=== PATIENT | female | born 1960 | race Caucasian/White ===

== ENCOUNTER 2023-10-25 09:01 | Outpatient (CLI) | payer OTHER, SELFPAY ==
--- NOTE | ~2023-10-25 | US_ITS ---
Abdominal Sonogram: Real-time sonographic imaging of the abdomen was performed. Clinical History: Ascites Findings: The liver appears echogenic, with no evidence of mass lesion or bile duct dilatation. Main portal vein demonstrates normal direction of flow. The spleen is normal in size without evidence of focal lesion. The gallbladder is well distended, and appears normal with no evidence of gallstone or wall thickening. The common bile duct measures 5 mm. The visualized pancreas, aorta, and IVC are un remarkable. The right kidney measures 11.2 cm in length and the left kidney measures 10.0 cm. There is no hydronephrosis or renal calculus. Small amount of abdominal ascites present. Impression: Small amount of abdominal ascites. Diffuse fatty infiltration of liver. Reviewed, dictated and finalized at [facility]. CLERK Impression: Small amount of abdominal ascites. Diffuse fatty infiltration of liver.
== END 2023-10-25 09:02 | disposition home or self-care (01) ==
LOC: CHSIMG 09:05
PROVIDERS: PCP Family Medicine; Visit Provider Family Medicine
DX: R18.8 Other ascites (principal); I50.9 Heart failure, unspecified; K76.0 Fatty (change of) liver, not elsewhere classified
CPT/HCPCS: 76700

== ENCOUNTER 2023-10-27 11:09 | Outpatient (CLI) | payer OTHER, SELFPAY ==
--- NOTE | ~2023-10-27 | XR_ITS ---
Clinical Indication: Heart failure PA and lateral views of the chest: Comparison: None Findings: The lungs are clear, without evidence of focal consolidation or pleural effusion. Cardiome diastinal silhouette is within normal limits. Right shoulder arthroplasty present. Impression: Clear lungs. Reviewed, dictated and finalized at [facility]. NDWATER CONSULTANT Impression: Clear lungs.
[2023-10-27 11:55] LABS: Alanine Aminotransferase 22 U/L (14-59); Albumin Level 3.5 g/dL (3.4-5.0); Alkaline Phosphatase 108 U/L (46-116); Anion Gap 4 mmol/L (8-16); Aspartate Amino Transferase 19 U/L (15-37); Bilirubin,Total 0.6 mg/dL (0.00-1.00); Blood Urea Nitrogen 20 mg/dL (7-18); Calcium 9.2 mg/dL (8.5-10.1); Carbon Dioxide 33 mmol/L (21-32); Chloride 99 mmol/L (98-108); Estimated Glomerular Filt Rate 55; Glucose 143 mg/dL (70-99); NT Pro B Type Natriuretic Pept 4961 pg/mL (0-125); Osmolality Calculated 286 mOsm/kg (285-295); Potassium 4.1 mmol/L (3.5-5.1); Sodium 136 mmol/L (136-145); Total Protein 7.2 g/dL (6.4-8.2)
== END 2023-10-27 11:10 | disposition home or self-care (01) ==
LOC: CHSIMG 11:11
PROVIDERS: PCP Family Medicine; Visit Provider Family Medicine
DX: I50.9 Heart failure, unspecified (principal)
CPT/HCPCS: 36415; 71046; 80053; 83880

== ENCOUNTER 2023-11-20 10:22 | Outpatient (CLI) | payer OTHER, SELFPAY ==
--- NOTE | ~2023-11-20 | US_ITS ---
EXAMINATION: US abdomen limited DATE: 11/20/2023 12:03 INDICATION: Ascites. TECHNIQUE: Multiple grayscale and Doppler ultrasound images of the abdomen were obtained. COMPARISON: Abdomen ultrasound 10/25/2023 FINDINGS: A survey of the 4 quadrants of the abdomen demonstrates no ascites. IMPRESSION: 1. No ascites. The paracentesis was canceled. Reviewed, dictated and finalized at location A. [facility]ER
[2023-11-20 11:03] LABS: Basophils Absolute Auto 0.1 K/mm3 (0.0-0.1); Basophils Percent Auto 1.2 % (0.2-1.2); Eosinophils Absolute Auto 0.3 K/mm3 (0-0.3); Eosinophils Percent Auto 4.6 % (0-4.4); Hematocrit 36.1 % (37.0-47.0); Hemoglobin 9.9 g/dL (12.0-15.0); Immature Granulocyte Absolute 0.02 K/mm3 (0.00-0.031); Immature Granulocyte Percent A 0.3 % (0-0.5); Lymphocytes Absolute Auto 1.43 K/mm3 (0.9-3.2); Lymphocytes Percent Auto 21.4 % (18.3-44.2); Mean Corpuscular HGB Conc 27.4 g/dl (32-36); Mean Corpuscular Hemoglobin 18.4 pg (26-34); Mean Corpuscular Volume 67.2 fl (80-100); Mean Platelet Volume 9.7 fl (7.4-10.4); Monocytes Absolute Auto 0.7 K/mm3 (0.1-0.6); Monocytes Percent Auto 10.9 % (2.6-8.5); Neutrophils Absolute Auto 4.1 K/mm3 (1.3-6.7); Neutrophils Percent Auto 61.6 % (45.5-73.1); Platelet Count Result 533 k/mm3 (150-375); Red Blood Count 5.37 M/mm3 (4.2-5.4); Red Cell Distribution Width 20.2 % (11.5-14.5); White Blood Count 6.7 K/mm3 (4.5-10.0)
[2023-11-20 11:21] LABS: Platelet Estimate Increased (Adequate)
[2023-11-20 11:23] LABS: Anisocytosis 1+ (NORMAL); Hypochromasia 1+ (NORMAL); Poikilocytosis 2+ (NORMAL)
[2023-11-20 11:24] LABS: Schistocytes 1+ (NORMAL); Target Cells 1+ (NORMAL)
== END 2023-11-20 10:23 | disposition home or self-care (01) ==
PROVIDERS: Radiology Diagnostic Radiology; PCP Family Medicine; Visit Provider Family Medicine
DX: R18.8 Other ascites (principal)
CPT/HCPCS: 36415; 76705; 85025; 85610

== ENCOUNTER 2023-11-20 13:29 | Outpatient (CLI) | payer OTHER, SELFPAY ==
--- NOTE | 2023-11-20 13:36 | ECHO_ITS ---
Patient Info Name: Marium Pittman Age: 62 years : 1960 Gender: Female Ht: 64 in Wt: 180 lbs BSA: 1.95 m2 HR: 75 bpm BP: 136 / 88 mmHg Heart Rhythm: Sinus Rhythm Technical Quality: Good Exam Date: 11/20/2023 2:45 PM Exam Location: Echo Lab Patient Status: Outpatient Admit Date: 11/20/2023 Staff Ordering Physician: Vel, Melissa Yancey MD Foot Doctor: Cynthia Montoya RDCS Attending Provider: Vel, Melissa Yancey MD Referring Physician: Vel VILLAVICENCIO; Exam Type: CA echo doppler color flow Study Info Indications - heart faliure Complete two-dimensional, color flow and Doppler transthoracic echocardiogram is performed. Summary 1. Complete two-dimensional, color flow and Doppler transthoracic echocardiogram is performed. 2. Left ventricular chamber dimension is mildly enlarged. 3. Left ventricular systolic function is mildly reduced, estimated at 45-50%. 4. There is mild concentric increased left ventricular wall thickness. 5. The left ventricular diastolic function is grade I diastolic dysfunction. 6. E/e' 10 is mildly elevated. 7. Right ventricular chamber dimension is moderately enlarged. 8. Left atrial chamber dimension is mildly enlarged. 9. Right atrial chamber dimension is moderately enlarged. 10. There is moderate aortic valve sclerosis. 11. The mitral valve has mildly calcified leaflets and moderately calcified annulus. 12. There is moderate to severe mitral valve regurgitation. 13. There is moderate tricuspid valve regurgitation. 14. Mild pulmonary hypertension, estimated pulmonary arterial systolic pressure is 41 mmHg. 15. There is trace pulmonic regurgitation. Left Ventricle E/e' 10 is mildly elevated. Left ventricular chamber dimension is mildly enlarged. Left ventricular systolic function is mildly reduced, estimated at 45-50%. There is mild concentric increased left ventricular wall thickness. The left ventricular diastolic function is grade I diastolic dysfunction. Right Ventricle Right ventricular systolic function is normal and with normal TAPSE 2.2 cm. Right ventricular chamber dimension is moderately enlarged. Left Atria Left atrial chamber dimension is mildly enlarged. Right Atria Right atrial chamber dimension is moderately enlarged. Aortic Valve The aortic valve is trileaflet. There is moderate aortic valve sclerosis. There is no aortic valve stenosis. There is no aortic valve regurgitation. Pulmonic Valve There is trace pulmonic regurgitation. Mitral Valve The mitral valve has mildly calcified leaflets and moderately calcified annulus. There is no mitral valve stenosis. There is moderate to severe mitral valve regurgitation. Tricuspid Valve There is moderate tricuspid valve regurgitation. Mild pulmonary hypertension, estimated pulmonary arterial systolic pressure is 41 mmHg. Pericardium/Pleural There is no pericardial effusion. Inferior Vena Cava Dilated inferior vena cava with >50% collapse upon inspiration consistent with normal right atrial pressure, 5 mmHg. Aorta The aortic root size at the sinus of Valsalva is normal. Left Ventricular Outflow Tract Name Value Normal LVOT 2D LVOT Diameter 1.9 cm LVOT Doppler LVOT Peak Velocity
== END 2023-11-20 13:30 | disposition home or self-care (01) ==
LOC: CHSIMG 13:30
PROVIDERS: PCP Family Medicine; Visit Provider Family Medicine
DX: R18.8 Other ascites (principal); I50.9 Heart failure, unspecified; I27.20 Pulmonary hypertension, unspecified
CPT/HCPCS: 93306

== ENCOUNTER 2024-02-06 08:12 | Outpatient (CLI) | payer OTHER, SELFPAY ==
--- NOTE | ~2024-02-06 | MM_ITS ---
EXAMINATION: MM screening laron BI w evelyn HISTORY: Screening mammogram TECHNIQUE: Craniocaudal and mediolateral oblique 3-D tomosynthesis images were obtained and synthetic 2-D images were generated. CAD analysis was submitted and interpreted. COMPARISON: No prior mammogram is available for comparison at this institution. This is reportedly th e patient's baseline examination. BREAST PARENCHYMAL COMPOSITION: There are scattered areas of fibroglandular density. FINDINGS: There are bilateral mammographic asymmetries. This is reportedly a baseline examination, so prior mammograms are not likely available, Bilateral diagnostic mammography is recommended, with ult rasound if required. IMPRESSION: 1. Bilateral mammographic asymmetry 2. Bilateral diagnostic mammography is recommended, with ultrasound if required BI-RADS Category 0: Incomplete: Needs additional imaging evaluation. Reviewed, dictated and finalized at location A.
== END 2024-02-06 08:13 | disposition home or self-care (01) ==
LOC: CHSIMG 08:14
PROVIDERS: PCP Family Medicine; Visit Provider Family Medicine
DX: Z12.31 Encounter for screening mammogram for malignant neoplasm of breast (principal); R92.8 Other abnormal and inconclusive findings on diagnostic imaging of breast
CPT/HCPCS: 77063; 77067

== ENCOUNTER 2024-03-19 09:17 | Outpatient (CLI) | payer OTHER, SELFPAY ==
--- NOTE | ~2024-03-19 | MMUS_ITS ---
EXAMINATION: MM diagnostic laron BI w evelyn, US breast BI limited HISTORY: Mammographic asymmetry is reported in outer breasts TECHNIQUE: Additional 3-D tomosynthesis images of both breasts were performed and synthetic 2-D image s were generated. CAD analysis was submitted and interpreted. High resolution bilateral upper outer a nd lower outer breast ultrasound was performed. COMPARISON: 02/06/2024 Screening mammogram FINDINGS: MAMMOGRAPHIC FINDINGS: No suspicious mass or architectural distortion is evident. There is likely benign fibroadenoma asymme try in the outer breasts on this baseline screening mammogram examination. Ultrasound imaging of the outer half of each breast was performed. ULTRASOUND: There is relatively dense stroma with some shadowing but without apparent disruption of the tissue pl anes in the upper outer quadrant of each breast. No discrete mass lesion or suspicious vascularity is noted. IMPRESSION: 1. Probable benign fibroglandular asymmetry 2. Six-month diagnostic bilateral mammogram and bilateral breast ultrasound follow-up is recommended BI-RADS category 3, probably benign findings. Reviewed, dictated and finalized at location B. IMPRESSION: 1. Probable benign fibroglandular asymmetry 2. Six-month diagnostic bilateral mammogram and bilateral breast ultrasound fol low-up is recommended BI-RADS category 3, probably benign findings.
== END 2024-03-19 09:18 | disposition home or self-care (01) ==
LOC: CHSIMG 09:20
PROVIDERS: PCP Family Medicine; Visit Provider Family Medicine
DX: R92.8 Other abnormal and inconclusive findings on diagnostic imaging of breast (principal)
CPT/HCPCS: 76642; 77062; 77066; G0279

== ENCOUNTER 2025-04-22 13:05 | Outpatient (CLI) | payer MEDICARE, MEDICAID, SELFPAY ==
[2025-04-22] MEDS: IRON SUCROSE COMPLEX 300 MG in SODIUM CHLORIDE 0.9% IV 235 ML 125 MG IVPB (13:15)
[2025-04-22 13:25] VITALS: BP 120/71; PULSE 88; RESP 14; TEMP 36.6; O2SAT 97; BMI 42.2
--- OUTSIDE RECORDS SUMMARY | 2025-04-22 14:10 | XMS_ITS ---
Author Organization Unknown Address [address] [place] [address] [phone] Phone Care Team Providers Care Spindle Setter Name Role Phone VINCENT VICTORIA Attending Unavailable PAT Downing Primary Unavailable Immunization Immunization Date Status Additional Notes Code Code System Influenza, split virus, quadrivalent, PF 11/23/2016 Completed 150 CVX Social History Type Status Start Date End Date Code Code Syst em Sex Female Hospital Discharge Instructions Should you have any questions prior to discharge, please contact a member of your healthcare team. If you have left the hospital and have any questions, please contact your primary care physician. Reason For Referral No Data Found Allergies and Adverse Reactions Allergy Substance Reaction Severity Start Date Concern Status Co de Code System No Known Drug Allergies Active 659930947 SNOMED-CT Plan of Treatment No Data Found Encounters Encounter Diagnosis Start Date Code Code Sys tem Abnormal electrocardiogram [ECG] [EKG] 10/31/2023 SNOMED-CT Personal Care Team Section Performer Name Performer Role Active Date Inactive Da te
--- OUTSIDE RECORDS SUMMARY | 2025-04-22 14:10 | XMS_ITS ---
Author Organization Unknown Address [address] [place] [address] [phone] Phone Care Team Providers Care Mangle Feeder Name Role Phone VINCENT VICTORIA Attending Unavailable [...] Code System No Known Drug Allergies Active 183146445 SNOMED-CT Plan of Treatment No Data Found Encounters Encounter Diagnosis Start Date Code Code Sys tem Heart failure 01/02/2024 [id number] SNOMED-CT Personal Care Team Section Performer Name Performer Role Active Date Inactive Da florence
--- NOTE | 2025-04-22 15:41 | PC.NURSE ---
Tolerated #1 of 3 Venofer infusions well. SEE MAR/patient care notes
[2025-04-22 15:42] VITALS: BP 141/70; PULSE 88; RESP 14; O2SAT 97
== END 2025-04-22 13:06 | disposition home or self-care (01) ==
PROVIDERS: PCP Family Medicine; Visit Provider Family Medicine
DX: D50.9 Iron deficiency anemia, unspecified (principal)
CPT/HCPCS: 96365; 96366; J1756; J7050

== ENCOUNTER 2025-04-29 12:48 | Outpatient (CLI) | payer MEDICARE, MEDICAID, SELFPAY ==
--- NOTE | 2025-04-29 13:00 | PC.NURSE ---
Here for OP iron infusion
[2025-04-29 13:09] VITALS: BP 137/64; PULSE 81; RESP 18; TEMP 36.6; O2SAT 95
[2025-04-29 13:10] VITALS: BMI 27.0
[2025-04-29] MEDS: IRON SUCROSE COMPLEX 300 MG in SODIUM CHLORIDE 0.9% IV 250 ML 125 MG IVPB (13:18)
--- OUTSIDE RECORDS SUMMARY | 2025-04-29 13:20 | XMS_ITS | Clinical Summary ---
Author Organization [facility] Address [address] [place] [id number] Care Team Providers Care Small Package And Bundle Sorter Clerk Name Role Phone Juan Mcgarry MD Primary Care Provider Allergies No known active allergies Medications furosemide (LASIX) 40 MG tablet Take 1 tablet (40 mg total) by mouth daily. 30 tablet 10/16/2023 Active Active Problems No known active problems Family History Medical History Relation Comments No Known Problems Father Hypertension Mother Relation Status Comments Father Mother Social History Tobacco Use Types Packs/Day Years Used Date Smoking Tobacco: Never Smokeless Tobacco: Never Alcohol Use Standard Drinks/Week Comments Never 0 (1 standard drink = 0.6 oz pur e alcohol) Comments No Sex and Gender Information Value Date Recorded Sex Assigned at Not on file Legal Sex Female 5:50 PM ENGINEERING TECHNICIAN PARKING Gender Identity Not on file Sexual Orientation Not on file Last Filed Vital Signs Vital Sign Reading Time Taken Comments Blood Pressure 148/88 10/16/2023 8:15 PM ENGINEERING TECHNICIAN PARKING Pulse 109 10/16/2023 8:15 PM ENGINEERING TECHNICIAN PARKING Temperature 35.7 C (96.3 F) 10/16/2023 5:31 PM ENGINEERING TECHNICIAN PARKING Respiratory Rate 21 10/16/2023 8:15 PM ENGINEERING TECHNICIAN PARKING Oxygen Saturation 100% 10/16/2023 8:00 PM ENGINEERING TECHNICIAN PARKING Inhaled Oxygen Concentration - - Weight 89.8 kg (198 lb) 10/16/2023 5:31 PM ENGINEERING TECHNICIAN PARKING Height 160 cm (5' 3) 10/16/2023 5:31 PM ENGINEERING TECHNICIAN PARKING Body Mass Index 35.07 10/16/2023 5:31 PM ENGINEERING TECHNICIAN PARKING Plan of Treatment Health Maintenance Due Date Last Done Comments Colorectal Cancer Screening Colonoscopy (10 Years) 1960 Hepatitis C 1977 DTaP, Tdap and Td Vaccines ( 1 - Tdap) 1978 Mammogram Screening 1999 Pneumococcal Vaccine: 50+ Ye ars (1 of 1 - PCV) 2009 Zoster Vaccines (1 of 2) 2009 COVID-19 Vaccine (1 - 2023-2 5 season) 2024 Dexa Scan (General) 2024 RSV Immunization or 60+ Years (1 - 1-dose 75+ series) 2034 Meningococcal B Vaccine Aged Out No l onger eligible based on patient's age to complete this topic Meningococcal Vaccine Aged Out No av carrie eligible based on patient's age to complete this topic RSV Immunizations Under 20 Months Aged Out No longer eligible based on patient's age to complete this topic [place] [place] [address] Care Teams Small Package And Bundle Sorter Clerk Relationship Specialty Start Date End Date Juan Mcgarry MD [address] [place] [phone] PCP - General FAMILY PRACTICE 07/29/22
--- OUTSIDE RECORDS SUMMARY | 2025-04-29 13:20 | XMS_ITS ---
Author Organization Unknown Address [address] [place] [address] [phone] Phone Care Team Providers Care Party Plan Dealer Name Role Phone VINCENT VICTORIA Attending Unavailable [...] Code System No Known Drug Allergies Active [id number] SNOMED-CT Plan of Treatment No Data Found Encounters Encounter Diagnosis Start Date Code Code Sys tem Abnormal electrocardiogram [ECG] [EKG] 10/31/2023 SNOMED-CT Personal Care Team Section
--- OUTSIDE RECORDS SUMMARY | 2025-04-29 13:20 | XMS_ITS ---
Author Organization Unknown Address [address] [place] [phone] Phone Care Team Providers Care Chipping Machine Operator Name Role Phone VINCENT VICTORIA Attending Unavailable [...] Code System No Known Drug Allergies Active [id number] SNOMED-CT Plan of Treatment No Data Found Encounters Encounter Diagnosis Start Date Code Code Sys tem Heart failure 01/02/2024 [id number] SNOMED-CT Personal Care Team Section
--- OUTSIDE RECORDS SUMMARY | 2025-04-29 13:20 | XMS_ITS | Encounter Summary ---
Author Organization [facility] Address [address] [place] [id number] Care Team Providers Care Flight Reservations Manager Name Role Phone Juan Mcgarry MD Primary Care Provider [phone] Encounter Details Date Type Department Care Team (Late st Contact Info) Description 04/20/2019 Abstract [facility] CONVERSION [address] [place] [address] , Generic Conversion, Social History Tobacco Use Types Packs/Day Years Used Date Smoking Tobacco: Never Assessed Comments Unknown Sex and Gender Information Value Date Recorded Sex Assigned at Not on file Legal Sex Female 5:50 PM RENEWABLE ENERGY DIVISION MANAGER Gender Identity Not on file Sexual Orientation Not on file documented as of this encounter Plan of Treatment Not on file documented as of this encounter Visit Diagnoses Not on filedocumented in this encounter Care Teams Flight Reservations Manager Relationship Specialty Start Date End Date Juan Mcgarry MD [address] [place] [phone] PCP - General FAMILY PRACTICE 07/29/22 documented as of this encounter
== END 2025-04-29 15:45 | disposition home or self-care (01) ==
PROVIDERS: PCP Family Medicine; Visit Provider Family Medicine
DX: D50.9 Iron deficiency anemia, unspecified (principal)
CPT/HCPCS: 96365; 96366; J1756; J7050

== ENCOUNTER 2025-05-09 09:03 | Outpatient (CLI) | payer MEDICARE, MEDICAID, SELFPAY ==
[2025-05-09 09:07] VITALS: BMI 27.0
[2025-05-09 09:19] VITALS: BP 124/69; PULSE 80; RESP 14; TEMP 36.5; O2SAT 97
[2025-05-09] MEDS: IRON SUCROSE COMPLEX 300 MG in SODIUM CHLORIDE 0.9% IV 235 ML 125 MG IVPB (09:30)
[2025-05-09 11:34] VITALS: BP 125/70; PULSE 78; RESP 14; O2SAT 97
--- NOTE | 2025-05-09 11:53 | PC.NURSE ---
Patient tolerated #3 of 3 Venofer infusion well.
== END 2025-05-09 09:04 | disposition home or self-care (01) ==
PROVIDERS: PCP Family Medicine; Visit Provider Family Medicine
DX: D50.9 Iron deficiency anemia, unspecified (principal)
CPT/HCPCS: 96365; 96366; J1756; J7050